=== PATIENT | male | born 1950 | race Caucasian/White ===

== ENCOUNTER 2023-01-16 08:30 | Day surgery (SDC) | payer MEDICARE, OTHER ==
[2023-01-14 15:40] LABS: Absolute Lymphocytes (CBC) 1.3 K/uL (0.7-4.9); Hematocrit 50.2 % (39.6-49.0); RBC Red Blood Cell Count 5.23 M/uL (4.33-5.43)
[2023-01-14 15:43] LABS: Protime INR 1.17
--- NOTE | 2023-01-14 15:50 | RAD REPORT ---
EXAM DESCRIPTION: Filippo Pa And Lat (2 Views)01/14/2023 3:36 pm CLINICAL HISTORY: Preop cardiac catheterization. Hypertension COMPARISON: 2018 FINDINGS: Lungs are moderately hyperaerated consistent with COPD Bilateral interstitial opacities appear chronic. Lungs appear clear of acute infiltrate. Heart is normal size
[2023-01-14 15:57] LABS: Potassium 4.1 mEq/L (3.5-5.1)
--- NOTE | 2023-01-15 12:03 | EKG ---
Test Date: 2023-01-14 Test Time: 15:16:25 Web Page Developer: LAYNE MEASUREMENT RESULTS: Intervals: Rate: 112 WV: 144 QRSD: 96 QT: 308 QTc: 420 [place]: P: 85 WV: 144 QRS: -43 T: 79 INTERPRETIVE STATEMENTS: Sinus tachycardia Left axis deviation Abnormal ECG No previous ECG available for comparison Electronically Signed On 01-15-23 12:02:08 CDT by Carlos Enrique Lei
[2023-01-16] MEDS ORDERED: HEPA 1000U/500MLS 2,000 UNIT/1,000 ML BAG IV ONE (08:49)
[2023-01-16] MEDS ORDERED: CLOPIDOGREL 75 MG TABLET ONE (08:50)
[2023-01-16] MEDS ORDERED: MIDAZOLAM HCL 2 MG/2 ML INJ ONE (08:50)
[2023-01-16] MEDS ORDERED: LIDOCAINE 1% 20 ML MDV ONE (08:50)
[2023-01-16] MEDS ORDERED: FENTANYL CITR 100 MCG/2 ML ONE (08:50)
[2023-01-16] MEDS ORDERED: HEPARIN 5000 UNIT/ML 1 ML VIAL ONE (08:50)
[2023-01-16] MEDS ORDERED: VERAPAMIL HCL 10 MG/4 ML VIAL IV ONE (08:50)
[2023-01-16] MEDS ORDERED: ASPIRIN 325 MG TAB ONE (08:50)
[2023-01-16] MEDS ORDERED: ATROPINE SULF 1 MG/10 ML SYR IV ONE (08:51)
[2023-01-16] MEDS ORDERED: TICAGRELOR 90 MG TABLET PO ONE (08:51)
[2023-01-16] MEDS ORDERED: NITROGLYCERIN 100 MCG/ML SYR (for cath lab use only) IV ONE (08:51)
[2023-01-16] MEDS ORDERED: NITROGLYCERIN/D5W 25 MG/250 ML BTL IV ONE (08:51)
[2023-01-16] MEDS ORDERED: HEPARIN 10,000 UNIT/10 ML VIAL IV ONE (08:51)
[2023-01-16] MEDS ORDERED: NA CHLORIDE 0.9% 500 ML ONE (09:13)
[2023-01-16 14:57] VITALS: BP 127/82; O2SAT 95
--- NOTE | 2023-01-16 21:48 | OP ---
Date of Procedure: 01/16/2023 Surgeon: JUWAN BERMUDEZ Procedures Performed: 1.Selective coronary angiogram. 2.Left heart catheterization. 3.PCI of severe diagonal 2 branch 90% stenosis and it is larger of large vessel. I used 2.5 x 60 mm Synergy drug-eluting stent. Access: Right radial artery 6-Palestinian closed with TR band. Complications: None. Bleeding: Less than 20 mL. Indication: Abnormal stress test with chest pain. Anesthesia: Total sedation time was 1 hour. Description Of Procedure: After risks, benefits, and alternatives explained, the patient agreed to p rocedure and signed informed consent. The patient was brought into the cardiac catheterization labor atory, prepped and draped in sterile fashion. Then, I accessed right radial artery using pediatric m icropuncture kit, placed 6-Palestinian slender sheath and took a 5-Palestinian [place] 4.0 catheter into aortic r oot. Over a J-wire, I engaged left main and then right coronary artery, took standard views and cath eter was pushed over the wire into the LV, measured LVEDP, pullback did not record any gradient. The n I gave systemic heparin to assure ACT level above 250. Throughout the procedure, we gave 600 mg of Plavix. The patient already had aspirin today and then I took a 6-Palestinian EBU3.5 guide into the aort ic root over a J-wire and engaged the left main, took run-through wire into the LAD, placed it into t he diagonal 2 branch through the area of stenosis and using 2.5 balloon, stenosis expanded very well and then placed 2.5 x 16 mm drug-eluting stent with excellent angiographic results and 0% residual st enosis. I removed the wire and took final angiogram was satisfactory and removed the guide and the s audrey and placed TR band with good hemostasis. Findings: 1.Left main, long with some luminal irregularity. 2.LAD; proximal segment some luminal irregularity and then 2 tandem lesions ranging between 30% and 40%. Diagonal 1 branch appears to be small. No significant disease, shows some irregularities and t he diagonal 2 branch is large. The LAD basically bifurcates into diagonal 2 branch and distal LAD an d has proximal 90% stenosis, status post successful PCI as above. 3.Left circumflex; it is very large vessel and the OM1 branch is small less than 2 mm, has proximal diffuse 90% and OM2 branch is larger vessel and also proximal 90%. There is collaterals from the LAD to the RCA and the PDA. 4.RCA is totally occluded proximally with O2 collaterals and collaterals from the left filling the R CA all the way back up. 5.LVEDP borderline elevated at 18 mmHg. Conclusion: 1.Severe diagonal 2 branch, status post PCI and severe OM2 branch that is going to be staged in abou t 4 weeks. 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 3.Moderate coronary artery disease elsewhere. 4.Slightly elevated LVEDP. Plan: 1.Aspirin, Plavix, and statin. 2.Staged PCI of OM2 branch in about 4 to 5 weeks. SR/EMILIEL Voice ID: [id number] Report ID: [id number]
== END 2023-01-16 14:58 | disposition home or self-care (01) ==
LOC: CCL 08:30
PROVIDERS: ATTEND Internal Medicine
DX: I25.10 Atherosclerotic heart disease of native coronary artery without angina pectoris (principal); I25.82 Chronic total occlusion of coronary artery; I10 Essential (primary) hypertension; E78.5 Hyperlipidemia, unspecified; I71.43 Infrarenal abdominal aortic aneurysm, without rupture; R09.89 Other specified symptoms and signs involving the circulatory and respiratory systems; Z87.891 Personal history of nicotine dependence; Z79.899 Other long term (current) drug therapy; Z88.0 Allergy status to penicillin
CPT/HCPCS: 93005; 85025; 80048; 36415; 85610; 85347; 85730; 71046; 93458; 76937; C1893; Q9967; C1725; C9600; J1644; J2001; J0461; J2250; J3010; J7040; 92928

== ENCOUNTER 2023-03-05 06:30 | Day surgery (SDC) | payer OTHER ==
[2023-03-04 11:42] LABS: Hematocrit 50.5 % (39.6-49.0); Lymphocytes % 12.5 % (15.3-44.8); MCV 95.6 fL (80-100); MPV 6.8 fL (7.6-11.3); Platelets 277 thou/uL (152-406); RBC Red Blood Cell Count 5.29 M/uL (4.33-5.43)
[2023-03-04 11:46] LABS: Protime INR 1.08
[2023-03-04 11:54] LABS: Potassium 4.9 mEq/L (3.5-5.1)
--- NOTE | 2023-03-04 18:42 | EKG ---
Test Date: 2023-03-04 Test Time: 11:13:32 Web Communications Specialist: LAYNE MEASUREMENT RESULTS: Intervals: Rate: 80 ME: 150 QRSD: 100 QT: 348 QTc: 401 [place]: P: 79 ME: 150 QRS: 73 T: 62 INTERPRETIVE STATEMENTS: Normal sinus rhythm Low voltage QRS Borderline ECG Compared to ECG 01/14/2023 15:16:25 Low QRS voltage now present Sinus tachycardia no longer present Left-axis deviation no longer present Electronically Signed On 03-04-23 18:41:37 CDT by Carlos Enrique Lei
[2023-03-05] MEDS ORDERED: NA CHLORIDE 0.9% 500 ML ONE (07:09)
[2023-03-05] MEDS ORDERED: LIDOCAINE 1% 20 ML MDV ONE (07:35)
[2023-03-05] MEDS ORDERED: HEPA 1000U/500MLS 2,000 UNIT/1,000 ML BAG IV ONE (07:35)
[2023-03-05] MEDS ORDERED: MIDAZOLAM HCL 2 MG/2 ML INJ ONE (07:44)
[2023-03-05] MEDS ORDERED: FENTANYL CITR 100 MCG/2 ML ONE (07:44)
[2023-03-05] MEDS ORDERED: HEPARIN 5000 UNIT/ML 1 ML VIAL ONE (07:45)
[2023-03-05] MEDS ORDERED: VERAPAMIL HCL 10 MG/4 ML VIAL IV ONE (07:45)
[2023-03-05] MEDS ORDERED: CLOPIDOGREL 75 MG TABLET ONE (07:45)
[2023-03-05] MEDS ORDERED: HEPARIN 10,000 UNIT/10 ML VIAL IV ONE (07:45)
[2023-03-05] MEDS ORDERED: ASPIRIN 325 MG TAB ONE (07:45)
[2023-03-05] MEDS ORDERED: NITROGLYCERIN/D5W 25 MG/250 ML BTL IV ONE (07:46)
[2023-03-05] MEDS ORDERED: ATROPINE SULF 1 MG/10 ML SYR IV ONE (07:46)
[2023-03-05] MEDS ORDERED: TICAGRELOR 90 MG TABLET PO ONE (07:46)
[2023-03-05] MEDS ORDERED: NITROGLYCERIN 100 MCG/ML SYR (for cath lab use only) IV ONE (07:46)
[2023-03-05] MEDS ORDERED: NITROGLYCERIN 0.4 MG/TAB SL ONE (09:04)
--- NOTE | 2023-03-05 09:10 | OP ---
Date of Procedure: 03/05/2023 Surgeon: JUWAN BERMUDEZ Procedures Performed: 1.Selective coronary angiogram. 2.PCI of severe proximal OM2 branch, used 2.25 x 20 mm Synergy drug-eluting stent. 3.Balloon angioplasty of severe ostial and proximal OM1 branch stenosis, used 2.5 x 15 mm balloon, b ut I could not deliver the stent due to the take of bent that is very sharp angle. Indication: Known coronary artery disease with chest pain. Access: Right radial artery 6-Lithuanian closed with TR band. Complications: None. Bleeding: Less than 50 mL. Anesthesia: Total sedation time was 1 hour, used fentanyl and Versed. Description Of Procedure: After risks, benefits, alternatives were explained, the patient agreed to procedure and signed informed consent. The [facility], prepped and draped in the usual sterile fashion. Then I accessed right radial artery using Micromuscle micropuncture kit, placed a 6-Lithuanian Slender sheath and I took a 6-Lithuanian EBU3.5 guide into the aortic root over a J-wire, engaged left main, took standard views and then I took 1 Run-Through w desi into the OM1 branch and the other Run-Through wire into the OM2 branch. Using a 2.5 x 15 mm Comp liant balloon, I did balloon angioplasty of both and I could not deliver the stent to the OM1 branch due to the sharp angle takeoff, but there was no dissection and significant improvement in his stenos is, so it was left alone and then I placed a stent in the 2.25 x 20 mm in the ostial to proximal OM2 with excellent results. I removed the wire. Final angiogram was satisfactory. During the procedure , heparin was given to assure ACT level above 250. I then removed all the wires and the catheter and the sheath with TR band with good hemostasis. Findings: 1.Left main; it is large with luminal irregularities. 2.LAD; proximal luminal irregularities, mid 30%. Patent diagonal 2 stent and that is very large bra nc and luminal irregularities of diagonal 1. 3.Left circumflex; moderate-sized proximal is normal and then OM1 branch has proximal 90%, status po st balloon angioplasty as above and OM2 branch is large and has a severe stenosis proximally about 99 %, status post PCI using 2.25 x 20 mm Synergy drug-eluting stent. 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 Conclusion: Severe OM1/OM2 branch, status post angioplasty of OM1 and PCI of OM2 as above. Plan: Aspirin, Plavix, and high-dose statin. Follow up with me in the office in a month. SR/MODL Voice ID: [id number] Report ID: [id number]
[2023-03-05] MEDS ORDERED: FAMOTIDINE 20 MG/2 ML VIAL IV ONE (11:06)
[2023-03-05 13:07] VITALS: BP 149/79; TEMP 97.5; O2SAT 95
== END 2023-03-05 12:11 | disposition home or self-care (01) ==
LOC: PRE 06:30 → CCL 12:11
PROVIDERS: ATTEND Internal Medicine
DX: I25.10 Atherosclerotic heart disease of native coronary artery without angina pectoris (principal); I25.82 Chronic total occlusion of coronary artery; I65.23 Occlusion and stenosis of bilateral carotid arteries; I71.43 Infrarenal abdominal aortic aneurysm, without rupture; I10 Essential (primary) hypertension; E78.2 Mixed hyperlipidemia; Z95.5 Presence of coronary angioplasty implant and graft; Z87.891 Personal history of nicotine dependence; Z79.899 Other long term (current) drug therapy; Z88.0 Allergy status to penicillin; Z88.8 Allergy status to other drugs, medicaments and biological substances
CPT/HCPCS: 93005; 85025; 80048; 36415; 85610; 85347 ×2; 85730; 92921; 93454; 76937; C1893; Q9967; C1725; C9600; J1644; J2001; J2250; J3010; J7040; 92920; J0461